=== PATIENT | male | born 1945 | race African-American/Black ===

== ENCOUNTER 2017-04-24 12:32 | Emergency (ER) | payer OTHER, BC ==
[~2017-04-24] VITALS: Ht 188 cm; Wt 136.1 kg
[~2017-04-24 12:32] MED LIST: ASPI81CT89 PO; CARV6.252 PO; DILT60TA94 PO; DOCU-67 PO; GABA300C PO; ISOS30TE PO; LANTUS SUBQ; LOSA25TA14 PO
[2017-04-24 12:36] VITALS: BP 131/88
--- NOTE | 2017-04-24 12:40 | NUR ---
Patient transferred to bed 6 via personal wheelchair. RN evaluating patient at bedside.
[2017-04-24] MEDS ORDERED: NACL 0.9% 1,000 ML IV ONE (12:45)
[2017-04-24] MEDS ORDERED: ASPIRIN 81 MG TAB.CHEW PO ONE (12:45)
--- NOTE | 2017-04-24 12:47 | NUR ---
Dr. Deras evaluating patient at bedside.
[2017-04-24] MEDS ORDERED: ADENOSINE 6 MG/2 ML VIAL IVP ONE ×2 (12:50→13:15)
--- NOTE | 2017-04-24 12:50 | NUR ---
PT PRESENTS TO ER W/C/O CHEST PAIN NON RADITAING SINCE YESTERDAY. 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 ALL MONITORS IN PLACED;ER MD MADE AWARE OF PT STATUS.
[2017-04-24] MEDS ORDERED: DILTIAZEM 25 MG/5 ML VIAL IVP ONE (13:15)
--- NOTE | 2017-04-24 13:23 | NUR ---
PT RESTING ON BED;ALL MONITORS IN PLACED;SAFETY MEASURES INSTITUTED;WILL CONTINUE TO MONITOR PT.
[2017-04-24 13:37] LABS: BASOPHILS # (AUTO) 0.1 K/uL (0.00-0.22); BASOPHILS % (AUTO) 1.1 % (0.0-2.0); EOSINOPHILS # (AUTO) 0.2 K/uL (0-0.4); EOSINOPHILS % (AUTO) 1.3 % (0.0-4.0); HEMATOCRIT 44.5 % (36-52); HEMOGLOBIN 14.2 g/dL (12.0-18.0); LYMPHOCYTES # (AUTO) 1.7 K/uL (2.0-11.5); LYMPHOCYTES % (AUTO) 13.4 % (20.5-51.1); MEAN CORPUSCULAR HEMOGLOBIN 25 pg (27-31); MEAN CORPUSCULAR HGB CONC 32 g/dL (33-37); MEAN CORPUSCULAR VOLUME 78 fL (80-94); MONOCYTES # (AUTO) 0.7 K/uL (0.8-1.0); MONOCYTES % (AUTO) 5.8 % (1.7-9.3); NEUTROPHILS # (AUTO) 10.2 K/uL (1.8-7.7); NEUTROPHILS % (AUTO) 78.4 % (42.2-75.2); PLATELET COUNT (AUTO) 207 K/uL (140-450); RED BLOOD CELL COUNT(AUTO) 5.69 MIL/uL (4.20-6.10); RED CELL DISTRIBUTION WIDTH 14.8 % (11.6-13.7); WHITE BLOOD COUNT (AUTO) 12.9 K/uL (4.8-10.8)
[2017-04-24 13:44] LABS: ANION GAP 15.4 (8-16); ASPARTATE AMINOTRANSFERASE 37 U/L (15-37); CARBON DIOXIDE 22.3 mmol/L (21-32); CHLORIDE 105 mmol/L (98-107); CREATININE 1.8 mg/dL (0.7-1.3); GLUCOSE 351 mg/dL (74-106); POTASSIUM 3.7 mmol/L (3.5-5.1); SODIUM SERUM 139 mmol/L (136-145); TOTAL BILIRUBIN 0.4 mg/dL (0.0-1.0); UREA NITROGEN, BLOOD 25 mg/dL (7-18)
[2017-04-24 13:57] LABS: PROTHROMBIN TIME 10.7 secs (10.8-13.4)
[2017-04-24 14:50] VITALS: BP 127/70
--- NOTE | 2017-04-24 14:50 | NUR ---
Patient discharged with v/s stable. Written and verbal after care instructions given and explained. Patient verbalized understanding. Ambulatory with steady gait. All questions addressed prior to discharge. Advised to follow up with PMD.
== END 2017-04-24 14:50 | disposition home or self-care (01) ==
LOC: MED 12:32
DX: I47.1 Supraventricular tachycardia (principal); R07.89 Other chest pain; R94.31 Abnormal electrocardiogram [ECG] [EKG]; E11.9 Type 2 diabetes mellitus without complications; I10 Essential (primary) hypertension; Z79.82 Long term (current) use of aspirin; Z79.899 Other long term (current) drug therapy; Z79.4 Long term (current) use of insulin
CPT/HCPCS: 36415; 71010; 80053; 83880; 84484; 85025; 85610; 85730; 93005; 96361; 96374; 96375; 99285; J0153; J3490; J7030; Q0092

== ENCOUNTER 2017-04-25 19:14 | Inpatient (IN) | payer OTHER, BC ==
[~2017-04-25] VITALS: Ht 188 cm; Wt 136.5 kg
[2017-04-25 19:53] VITALS: BP 157/101
--- NOTE | 2017-04-25 20:08 | NUR ---
Patient taken from ED lobby to XRAY via personal wheelchair by Integration Management.
[2017-04-25 20:29] LABS: BASOPHILS # (AUTO) 0.1 K/uL (0.00-0.22); EOSINOPHILS # (AUTO) 0.1 K/uL (0-0.4); EOSINOPHILS % (AUTO) 1.1 % (0.0-4.0); HEMATOCRIT 44.6 % (36-52); HEMOGLOBIN 14.4 g/dL (12.0-18.0); LYMPHOCYTES # (AUTO) 1.3 K/uL (2.0-11.5); LYMPHOCYTES % (AUTO) 14.7 % (20.5-51.1); MEAN CORPUSCULAR HEMOGLOBIN 25 pg (27-31); MEAN CORPUSCULAR HGB CONC 32 g/dL (33-37); MEAN CORPUSCULAR VOLUME 77 fL (80-94); MONOCYTES # (AUTO) 0.3 K/uL (0.8-1.0); MONOCYTES % (AUTO) 3.6 % (1.7-9.3); NEUTROPHILS # (AUTO) 6.8 K/uL (1.8-7.7); NEUTROPHILS % (AUTO) 79.6 % (42.2-75.2); PLATELET COUNT (AUTO) 216 K/uL (140-450); RED BLOOD CELL COUNT(AUTO) 5.77 MIL/uL (4.20-6.10); RED CELL DISTRIBUTION WIDTH 14.8 % (11.6-13.7); WHITE BLOOD COUNT (AUTO) 8.6 K/uL (4.8-10.8)
[2017-04-25 20:51] LABS: PROTHROMBIN TIME 10.2 secs (10.8-13.4)
[2017-04-25 20:55] LABS: ANION GAP 11.1 (8-16); CARBON DIOXIDE 26.8 mmol/L (21-32); CHLORIDE 105 mmol/L (98-107); CREATININE 1.6 mg/dL (0.7-1.3); GLUCOSE 300 mg/dL (74-106); POTASSIUM 3.9 mmol/L (3.5-5.1); SODIUM SERUM 139 mmol/L (136-145); UREA NITROGEN, BLOOD 14 mg/dL (7-18)
[2017-04-25 21:01] LABS: ALBUMIN 3.2 g/dL (3.4-5.0); ASPARTATE AMINOTRANSFERASE 14 U/L (15-37); TOTAL BILIRUBIN 0.3 mg/dL (0.0-1.0)
--- NOTE | 2017-04-25 21:41 | NUR ---
Patient transferred to bed 4 via personal wheelchair. Accompanied by family. RN evaluating patient at bedside.
--- NOTE | 2017-04-25 21:43 | NUR ---
Dr. Jiang evaluating patient at bedside.
--- NOTE | 2017-04-25 21:45 | NUR ---
72/M c/o chest pain for the past two days. Pt was seen here yesterday for same symptoms and patient states the pain did not improve. Daughter at bedside. Pt c/o tightness, constant, 5/10 pain. Pt also c/o nausea, denies vomiting. Pt is AOX4, w/c bound, uses an electric w/c to get around. Pt placed on cardiac catheterization technician, pulse oximetry and blood pressure monitoring. Warm blanket provided. All needs addressed at this time.
[2017-04-25] MEDS ORDERED: METOPROLOL 50 MG TAB PO ONE (21:55)
[2017-04-25] MEDS ORDERED: ASPIRIN 81 MG TAB.CHEW PO ONE (21:55)
[2017-04-25] MEDS ORDERED: ZOLPIDEM 5 MG TAB PO PRN (22:05)
[2017-04-25] MEDS ORDERED: LORazepam 1 MG TAB PO PRN (22:05)
[2017-04-25] MEDS ORDERED: DEXTROSE 50% 50 ML SYR IVP PRN (22:05)
[2017-04-25] MEDS ORDERED: ALUMINUM HYD/MAG/SIMETHICONE 30 ML UDC PO PRN (22:05)
[2017-04-25] MEDS ORDERED: ONDANSETRON 4 MG/2 ML VIAL IVP PRN (22:05)
[2017-04-25] MEDS ORDERED: HYDROcodone/APAP 5/325 MG 1 TAB TAB PO PRN (22:05)
[2017-04-25] MEDS ORDERED: NITROGLYCERIN 0.4 MG TAB SL PRN (22:05)
[2017-04-25] MEDS ORDERED: DOCUSATE SODIUM 100 MG GELCAP PO PRN (22:05)
[2017-04-25] MEDS ORDERED: ACETAMINOPHEN 325 MG TAB PO PRN (22:05)
--- NOTE | 2017-04-25 23:27 | NUR ---
Unable to give report at this time. Will follow up in 10 minutes.
--- NOTE | 2017-04-25 23:48 | NUR ---
Patient will be admitted to care of . Admited to TELE. Will go to room 111B. Belongings list completed. Report to
[2017-04-25 23:58] VITALS: BP 153/72
--- NOTE | 2017-04-26 00:10 | NUR ---
RECEIVED PT FROM ER, WAS WHEELED IN VIA GURNEY. WAS ABLE TO AMBULATE TO THE BED WITH AN ASSISTANCE. PT IS AOX4, ABLE TO MAKE NEEDS KNOWN. WITH RESPIRATIONS CLEAR AND UNLABORED. POSITIVE BOWEL SOUNDS ON ALL FOUR QUADRANTS. WITH COMPLAINTS OF CHEST PAIN 4/10, OFFERED MEDICATION, BUT REFUSED. WITH AN IV ON THE RIGHT HAND 20 G, INTACT AND PATENT. SKIN IS INTACT. INITIAL ASSESSMENT FINISHED. ON TELE MONITORING. ORIENTED PT TO THE UNIT, VERBALIZED UNDERSTANDING. WILL CONTINUE TO MONITOR. ALL NEEDS ATTENDED. CALL LIGHT WITHIN REACH. SAFETY CHECKS IN PLACE.
[2017-04-26] MEDS: NACL 0.9% 1,000 ML IV SCH ×4 (00:15→22:02)
--- NOTE | 2017-04-26 02:16 | NUR ---
PT SEEN WATCHING TV. NO S/S OF DISTRESS. NO COMPLAINTS OF PAIN. WILL CONTINUE TO MONITOR FOR ANY CHANGES.
[2017-04-26 04:00] VITALS: BP 145/72
--- NOTE | 2017-04-26 04:00 | NUR ---
VITAL SIGNS STABLE. NO COMPLAINTS OF PAIN. NO S/S OF DISTRESS. WILL CONTINUE TO MONITOR FOR ANY CHANGES.
[2017-04-26 05:00] LABS: BASOPHILS # (AUTO) 0.2 K/uL (0.00-0.22); BASOPHILS % (AUTO) 2.2 % (0.0-2.0); EOSINOPHILS # (AUTO) 0.1 K/uL (0-0.4); EOSINOPHILS % (AUTO) 1.6 % (0.0-4.0); HEMOGLOBIN 13.8 g/dL (12.0-18.0); LYMPHOCYTES # (AUTO) 1.7 K/uL (2.0-11.5); LYMPHOCYTES % (AUTO) 17.9 % (20.5-51.1); MEAN CORPUSCULAR HEMOGLOBIN 25 pg (27-31); MEAN CORPUSCULAR HGB CONC 32 g/dL (33-37); MEAN CORPUSCULAR VOLUME 78 fL (80-94); MONOCYTES # (AUTO) 0.7 K/uL (0.8-1.0); MONOCYTES % (AUTO) 7.1 % (1.7-9.3); NEUTROPHILS # (AUTO) 6.6 K/uL (1.8-7.7); NEUTROPHILS % (AUTO) 71.2 % (42.2-75.2); PLATELET COUNT (AUTO) 211 K/uL (140-450); RED BLOOD CELL COUNT(AUTO) 5.53 MIL/uL (4.20-6.10); RED CELL DISTRIBUTION WIDTH 14.6 % (11.6-13.7); WHITE BLOOD COUNT (AUTO) 9.3 K/uL (4.8-10.8)
[2017-04-26 06:04] LABS: ANION GAP 7.9 (8-16); CARBON DIOXIDE 28.7 mmol/L (21-32); CHLORIDE 106 mmol/L (98-107); CREATININE 1.4 mg/dL (0.7-1.3); GLUCOSE 254 mg/dL (74-106); POTASSIUM 3.6 mmol/L (3.5-5.1); SODIUM SERUM 139 mmol/L (136-145); UREA NITROGEN, BLOOD 14 mg/dL (7-18)
[2017-04-26 06:11] LABS: MAGNESIUM 1.8 mg/dL (1.8-2.4); PHOSPHORUS 2.9 mg/dL (2.5-4.9)
[2017-04-26 06:17] LABS: CHOL/HDL RATIO 3.5 (1-4.5); THYROID STIMULATING HORMONE 1.25 uIU/mL (0.34-3.74)
[2017-04-26] MEDS: INSULIN LISPRO SLIDING SCALE 100 UNITS/ML VIAL SUBQ PRN ×4 (06:28→20:18)
[2017-04-26] MEDS: BLOOD GLUCOSE MONITORING 1 DEV DEV FS SCH ×4 (06:30→20:34)
--- NOTE | 2017-04-26 06:30 | NUR ---
BLOOD SUGAR CHECK OF , GAVE 4 UNITS OF INSULIN
--- NOTE | 2017-04-26 07:10 | NUR ---
ENDORSED TO AM SHIFT NURSE FOR CONTINUITY OF CARE, IN STABLE CONDITION.
--- NOTE | 2017-04-26 07:15 | NUR ---
RECEIVED REPORT FROM WARP SPOOLER NURSE, PT IS RESTING IN BED, A/OX4, AMBULATES WITH ASSIST, IV IS ON THE RT HAND, PATENT, INTACT, FLUSHING WELL, SKIN IS INTACT, NO S/S OF RESPIRATORY DISTRESS OR DISCOMFORT NOTED, DISCUSSED PLAN OF CARE WITH PT, PT VERBALIZED UNDERSTANDING, SAFETY/FALL PRECAUTIONS ARE IN PLACE, CALL LIGHT IS WITHIN REACH, WILL CONTINUE TO MONITOR.
[2017-04-26 08:00] VITALS: BP 157/98
--- NOTE | 2017-04-26 08:46 | NUR ---
PATIENT HAS BEEN SCREENED AND CATEGORIZED MODERATE NUTRITION RISK. PATIENT WILL BE SEEN WITHIN 3-5 DAYS OF ADMISSION. 04/28/17-04/30/[address]
[2017-04-26] MEDS ORDERED: INSULIN GLARGINE SUBQ SCH (09:00)
[2017-04-26] MEDS ORDERED: INSULIN DETEMIR 100 UNITS/ML 10 ML VIAL SUBQ SCH (09:20)
[2017-04-26] MEDS: GABAPENTIN 300 MG CAP PO SCH ×3 (09:55→17:12)
[2017-04-26] MEDS: CARVEDILOL 6.25 MG TAB PO SCH ×2 (09:55→20:06)
[2017-04-26] MEDS: LOSARTAN 25 MG TAB PO SCH (09:55)
[2017-04-26] MEDS: DILTIAZEM 60 MG TAB PO SCH ×2 (09:56→20:06)
[2017-04-26] MEDS: ASPIRIN 81 MG TAB.CHEW PO SCH (09:56)
[2017-04-26] MEDS: ISOSORBIDE MONONITRATE 30 MG TABER PO SCH (09:56)
--- NOTE | 2017-04-26 09:56 | NUR ---
DUE MEDICATIONS GIVEN, PT TOLERATED WELL, CALL LIGHT WITHIN REACH, WILL CONTINUE TO MONITOR.
--- NOTE | 2017-04-26 11:30 | NUR ---
WEIGHT COUNT OPERATOR IS AT PATIENT'S BEDSIDE AT THIS TIME.
[2017-04-26 12:00] VITALS: BP 156/99
[2017-04-26 13:35] LABS: CREATINE KINASE MB 2.1 ng/mL (0-3.6)
--- NOTE | 2017-04-26 13:35 | NUR ---
PATIENT IS RESTING IN BED, WATCHING TV, NO S/S OF RESPIRATORY DISTRESS OR DISCOMFORT NOTED, CALL LIGHT IS WITHIN REACH.
--- NOTE | 2017-04-26 15:40 | NUR ---
PATIENT IS SLEEPING IN BED, CALL LIGHT IS WITHIN REACH.
[2017-04-26 16:00] VITALS: BP 156/98
--- NOTE | 2017-04-26 17:40 | NUR ---
PATIENT IS RESTING IN BED WATCHING TV, CALL LIGHT IS WITHIN REACH.
--- NOTE | 2017-04-26 19:15 | NUR ---
PT ENDORSED TO GLOBAL PROGRAM MANAGER NURSE FOR CONTINUITY OF CARE, PT STABLE AT THIS TIME.
--- NOTE | 2017-04-26 19:20 | NUR ---
RECEIVED PT ON BED, AAOX4, COMPLAINING OF CHEST PAIN AND HEADACHE 5/10, VITAL SIGNS STABLE, NO SOB NOTED, WILL MEDICATE PRN, IVF INFUSING WELL, PLAN OF CARE DISCUSSED, SAFETY MEASURES IN PLACE, CALL LIGHT WITHIN REACH.
[2017-04-26] MEDS: MORPHINE SULFATE 2 MG/ML SYR IVP PRN (19:27)
[2017-04-26 20:00] VITALS: BP 132/88
[2017-04-26] MEDS: INSULIN DETEMIR 100 UNITS/ML 10 ML VIAL SUBQ SCH (20:16)
--- NOTE | 2017-04-26 20:30 | NUR ---
BLOOD SUGAR CHECKED WITH 262 RESULT, COVERAGE GIVEN, SNACK PROVIDED, DUE MEDS GIVEN WITH EDUCATION PROVIDED, ALL NEEDS ATTENDED.
--- NOTE | 2017-04-26 22:11 | NUR ---
SEEN PT TALKING ON THE PHONE, NO DISTRESS NOTED, NEW IV BAG OF NS @ 100ML/H STARTED, MONITORED CLOSELY.
[2017-04-26 23:41] LABS: APPEARANCE,URINE CLEAR (CLEAR); BILIRUBIN,URINE NEGATIVE (NEGATIVE); BLOOD, URINE TRACE-L (NEGATIVE); COLOR,URINE YELLOW (YELLOW); LEUKOCYTE ESTERASE ,URINE NEGATIVE (NEGATIVE); NITRITE, URINE NEGATIVE (NEGATIVE); UGLUCOSE 2+ (NEGATIVE)
[2017-04-27] VITALS: BP 135/96
[2017-04-27 00:06] LABS: RBC,URINE 0-5 (RARE) /HPF (0-5); WBC,URINE 0-5 (RARE) /HPF (0-5)
--- NOTE | 2017-04-27 00:40 | NUR ---
PT HAD SHORT SVT OF 13 BEATS, PT SLEEPING, NO SIGNS OF DISTRESS, VITAL SIGNS STABLE, DENIES ANY CHEST PAIN, MONITORED CLOSELY
[2017-04-27] MEDS: MORPHINE SULFATE 2 MG/ML SYR IVP PRN (03:36)
--- NOTE | 2017-04-27 03:36 | NUR ---
PT AWAKE COMPLAINING OF CHEST PRESSURE AND HEADACHE, VITAL SIGN STABLE, SR ON TELE, MEDICATED PRN WITH MORPHINE IVP, MONITORED CLOSELY.
[2017-04-27 04:00] VITALS: BP 130/89
[2017-04-27] MEDS: NACL 0.9% 1,000 ML IV SCH (04:05)
--- NOTE | 2017-04-27 06:00 | NUR ---
BLOOD SUGAR CHECKED WITH 172 RESULT, COVERAGE GIVEN, DENIES ANY PAIN AT THIS TIME, MONITORED CLOSELY.
[2017-04-27] MEDS: INSULIN LISPRO SLIDING SCALE 100 UNITS/ML VIAL SUBQ PRN (06:10)
[2017-04-27 06:16] LABS: BASOPHILS # (AUTO) 0.1 K/uL (0.00-0.22); EOSINOPHILS # (AUTO) 0.2 K/uL (0-0.4); EOSINOPHILS % (AUTO) 1.8 % (0.0-4.0); HEMATOCRIT 43.1 % (36-52); HEMOGLOBIN 13.9 g/dL (12.0-18.0); LYMPHOCYTES # (AUTO) 1.3 K/uL (2.0-11.5); LYMPHOCYTES % (AUTO) 14.6 % (20.5-51.1); MEAN CORPUSCULAR HEMOGLOBIN 25 pg (27-31); MEAN CORPUSCULAR HGB CONC 32 g/dL (33-37); MEAN CORPUSCULAR VOLUME 77 fL (80-94); MONOCYTES # (AUTO) 0.5 K/uL (0.8-1.0); NEUTROPHILS # (AUTO) 6.9 K/uL (1.8-7.7); NEUTROPHILS % (AUTO) 76.6 % (42.2-75.2); PLATELET COUNT (AUTO) 209 K/uL (140-450); RED BLOOD CELL COUNT(AUTO) 5.59 MIL/uL (4.20-6.10); RED CELL DISTRIBUTION WIDTH 14.2 % (11.6-13.7)
--- NOTE | 2017-04-27 06:30 | NUR ---
DR Bari SMITH HERE, WITH ORDER FOR DISCHARGE TODAY, PATIENT AWARE, HE WILL ASK HER DAUGHTER TO PICK HIM UP, HE WILL CALL HER AT AROUND 0900 BECAUSE IT'S STILL TOO EARLY, WILL ENDORSE TO NEXT SHIFT.
[2017-04-27 06:32] VITALS: BP 130/89
[2017-04-27 06:39] LABS: CARBON DIOXIDE 24.6 mmol/L (21-32); CHLORIDE 106 mmol/L (98-107); CREATININE 1.2 mg/dL (0.7-1.3); GLUCOSE 174 mg/dL (74-106); MAGNESIUM 1.6 mg/dL (1.8-2.4); POTASSIUM 3.6 mmol/L (3.5-5.1); SODIUM SERUM 139 mmol/L (136-145); UREA NITROGEN, BLOOD 11 mg/dL (7-18)
[2017-04-27] MEDS: BLOOD GLUCOSE MONITORING 1 DEV DEV FS SCH (06:42)
--- NOTE | 2017-04-27 07:32 | NUR ---
PT AWAKE, REPORT GIVEN TO GLORIA MACK FOR CONTINUITY OF CARE.
[2017-04-27 08:00] VITALS: BP 174/107
[2017-04-27] MEDS: CARVEDILOL 6.25 MG TAB PO SCH (08:27)
[2017-04-27] MEDS: ASPIRIN 81 MG TAB.CHEW PO SCH (08:28)
[2017-04-27] MEDS: LOSARTAN 25 MG TAB PO SCH (08:28)
[2017-04-27] MEDS: DILTIAZEM 60 MG TAB PO SCH (08:28)
[2017-04-27] MEDS: GABAPENTIN 300 MG CAP PO SCH (08:28)
[2017-04-27] MEDS: ISOSORBIDE MONONITRATE 30 MG TABER PO SCH (08:29)
--- NOTE | 2017-04-27 08:30 | NUR ---
PATIENT ATE BREAKFAST, TOLERATED ABOUT 90 PERCENT.
[2017-04-27] MEDS: INSULIN DETEMIR 100 UNITS/ML 10 ML VIAL SUBQ SCH (08:42)
[2017-04-27 09:05] VITALS: BP 146/95
--- NOTE | 2017-04-27 10:10 | NUR ---
GAVE PATIENT DISCHARGE INSTRUCTIONS, FOLLOW UP WITH DR. SMITH IN ONE WEEK, PHONE NUMBER GIVEN. VERBALIZED UNDERSTANDING. VITAL SIGNS ARE STABLE AT THIS TIME. PATIENT IN HIS OWN AUTOMATIC WHEELCHAIR. DISCONTINUED IV FROM SITE, APPLIED DRESSING, CLEAN, DRY AND INTACT. ACCOMPANIED PATIENT AND DAUGHTER OUT TO [place].
== END 2017-04-27 10:10 | disposition home or self-care (01) | DRG 303 ==
LOC: MED 19:14 → MTU 22:13
PROVIDERS: ADMIT Preventive Medicine Preventive Medicine/Occupational Environmental Medicine; ATTEND Preventive Medicine Preventive Medicine/Occupational Environmental Medicine
DX: I25.10 Atherosclerotic heart disease of native coronary artery without angina pectoris (principal); N17.9 Acute kidney failure, unspecified; E11.22 Type 2 diabetes mellitus with diabetic chronic kidney disease; E11.40 Type 2 diabetes mellitus with diabetic neuropathy, unspecified; I12.9 Hypertensive chronic kidney disease with stage 1 through stage 4 chronic kidney disease, or unspecified chronic kidney disease; E11.65 Type 2 diabetes mellitus with hyperglycemia; E78.5 Hyperlipidemia, unspecified; N18.9 Chronic kidney disease, unspecified; Z95.5 Presence of coronary angioplasty implant and graft; Z79.899 Other long term (current) drug therapy; Z79.4 Long term (current) use of insulin
CPT/HCPCS: 36415; 71010; 76770; 80048; 80053; 81001; 82550; 82553; 82948; 83036; 83735; 83880; 84100; 84443; 84484; 85025; 85610; 85730; 87081; 93005; 96361; 96374; 96375; 99285; J0153; J1644; J1815; J2270; J3490; J7030; Q0092

== ENCOUNTER 2018-01-19 15:10 | Inpatient (IN) | payer OTHER, BC ==
[~2018-01-19] VITALS: Ht 188 cm; Wt 128.8 kg
[~2018-01-19 15:10] MED LIST changes: +DOCU-299 PO; -DOCU-67 PO
--- NOTE | 2018-01-19 15:15 | NUR ---
Patient ambulated to bed 5 at this time.
[2018-01-19 15:20] VITALS: BP 171/99
--- NOTE | 2018-01-19 15:44 | NUR ---
PATIENT PRESENTS TO ED WITH THE CHIEF C/O CHEST PAIN. PT STATES PAIN STARTED EARLY THIS MORNING. DENIES N/V/D; SKIN IS PINK/WARM/DRY; AAOX4 WITH EVEN AND STEADY GAIT. HR EVEN AND REGULAR; PT DENIES ANY FEVER, CP, SOB, OR COUGH AT THIS TIME. PATIENT STATES PAIN OF 8/10 AT THIS TIME. VSS WNL. PATIENT POSITIONED FOR COMFORT; HOB ELEVATED; BEDRAILS UP X2; BED DOWN. ER MD MADE AWARE OF PT STATUS.
[2018-01-19 16:00] LABS: BASOPHILS # (AUTO) 0.1 K/uL (0.00-0.22); BASOPHILS % (AUTO) 0.8 % (0.0-2.0); EOSINOPHILS # (AUTO) 0.1 K/uL (0-0.4); EOSINOPHILS % (AUTO) 1.2 % (0.0-4.0); HEMATOCRIT 41.4 % (36-52); HEMOGLOBIN 13.3 g/dL (12.0-18.0); LYMPHOCYTES % (AUTO) 15.5 % (20.5-51.1); MEAN CORPUSCULAR HEMOGLOBIN 25 pg (27-31); MEAN CORPUSCULAR HGB CONC 32 g/dL (33-37); MEAN CORPUSCULAR VOLUME 78.1 fL (80-94); MONOCYTES # (AUTO) 0.5 K/uL (0.8-1.0); MONOCYTES % (AUTO) 6.8 % (1.7-9.3); NEUTROPHILS # (AUTO) 5.1 K/uL (1.8-7.7); NEUTROPHILS % (AUTO) 75.7 % (42.2-75.2); PLATELET COUNT (AUTO) 191 K/uL (140-450); RED CELL DISTRIBUTION WIDTH 14.4 % (11.6-13.7); WHITE BLOOD COUNT (AUTO) 6.7 K/uL (4.8-10.8)
[2018-01-19 16:22] LABS: ANION GAP 11.7 (8-16); CARBON DIOXIDE 25.7 mmol/L (21-32); CHLORIDE 102 mmol/L (98-107); CREATININE 1.4 mg/dL (0.7-1.3); GLUCOSE 338 mg/dL (74-106); POTASSIUM 3.4 mmol/L (3.5-5.1); SODIUM SERUM 136 mmol/L (136-145); UREA NITROGEN, BLOOD 21 mg/dL (7-18)
[2018-01-19 16:27] LABS: ASPARTATE AMINOTRANSFERASE 12 U/L (15-37); TOTAL BILIRUBIN 0.2 mg/dL (0.0-1.0)
[2018-01-19] MEDS ORDERED: ASPIRIN 81 MG TAB.CHEW PO ONE (16:30)
[2018-01-19] MEDS ORDERED: NITROGLYCERIN 0.4 MG TAB SL ONE (16:30)
--- NOTE | 2018-01-19 16:31 | NUR ---
BS 288. DR. TRIPLETT MADE AWARE.
[2018-01-19] MEDS ORDERED: POTASSIUM CHLORIDE 10 MEQ TABER PO ONE (16:35)
--- NOTE | 2018-01-19 16:46 | NUR ---
PT RESTING IN BED. IN ACUTE RESPIRATORY DISTRESS NOTED. NO CHANGE IN LOC. WILL CONTINUE TO MONITOR.
--- NOTE | 2018-01-19 17:16 | NUR ---
PT EVALUATED BY DR. TRIPLETT.
[2018-01-19 17:17] LABS: BARBITURATE, URINE NEG. ng/ml (NEG <=200); BENZODIAZEPINE, URINE NEG. ng/mL (NEG <=200); CANNABINOID, URINE NEG. ng/mL (NEG <=50); COCAINE, URINE NEG. ng/mL (NEG <=300); OPIATE, URINE NEG. ng/mL (NEG <=2000); PHENCYCLIDINE SCREEN,URINE NEG. ng/mL (NEG <=25)
[2018-01-19] MEDS ORDERED: MORPHINE SULFATE 4 MG/ML SYR IVP ONE (17:20)
[2018-01-19] MEDS ORDERED: ACETAMINOPHEN 325 MG TAB PO PRN (17:45)
[2018-01-19] MEDS ORDERED: ONDANSETRON 4 MG/2 ML VIAL IVP PRN (17:45)
[2018-01-19] MEDS ORDERED: NITROGLYCERIN 0.4 MG TAB SL PRN ×2 (17:50→22:05)
[2018-01-19 18:13] LABS: APPEARANCE,URINE CLEAR (CLEAR); BILIRUBIN,URINE NEGATIVE (NEGATIVE); BLOOD, URINE TRACE-I (NEGATIVE); COLOR,URINE YELLOW (YELLOW); LEUKOCYTE ESTERASE ,URINE NEGATIVE (NEGATIVE); NITRITE, URINE NEGATIVE (NEGATIVE); PH,URINE 5.5 (5.0-9.0); UGLUCOSE 3+ (NEGATIVE)
[2018-01-19 18:39] LABS: RBC,URINE 3-10 (FEW) /HPF (0-5); WBC,URINE 0-5 (RARE) /HPF (0-5)
[2018-01-19 18:40] LABS: CHOL/HDL RATIO 2.8 (1-4.5); FREE T4 (FREE THYROXINE) 0.81 ng/dL (0.76-1.46); MAGNESIUM 1.9 mg/dL (1.8-2.4); PHOSPHORUS 3.2 mg/dL (2.5-4.9); THYROID STIMULATING HORMONE 0.94 uIU/mL (0.34-3.74)
[2018-01-19] MEDS: NACL 0.9% 1,000 ML IV SCH (18:56)
--- NOTE | 2018-01-19 19:15 | NUR ---
RECEIVED REPORT FROM AM NURSE. PT RESTING COMFORTABLY IN BED, PT REPORTS TOLERABLE CP AT THIS TIME. RR EVEN AND UNLABORED, ALL NEEDS MET AT THIS TIME.
--- NOTE | 2018-01-19 19:20 | NUR ---
Patient will be admitted to care of DR SNELL. Admited to TELE. Will go to room 107B. Belongings list completed. Report to GLORIA GOODWIN AT BEDSIDE.
--- NOTE | 2018-01-19 19:25 | NUR ---
PT ARRIVED AT UNIT VIA GURNEY, PT AMBULATED TO BED, TOLERATED WELL, BEDSIDE REPORT RECEIVED FROM ER NURSE JASON RN, PT STABLE NO DISTRESS NOTED, IV TO LFA 20G SL, PATENT INTACT, PT ON ROOM AIR NO SOB, STATED HAVING TOLERABLE PAIN ON THE CHEST AREA AND HEADACHE OF 4/10, PT BP WAS HIGH 175/104, WILL MEDICATE AND NOTIFY SKIN INTACT, BELONGING WITH PT, INITIAL ASSESSMENT DONE, ALL SAFETY PRECAUTION MET, MRSA SWAB TAKEN, ORIENT PT TO ROOM, PHONE AND CALL LIGHT, CALL LIGHT WITHIN REACH, WILL CONTINUE TO MONITOR.
--- NOTE | 2018-01-19 19:53 | NUR ---
NITRO SL ORDERED FOR SBP OVER 160, GIVEN, PT TOLERATED WELL, WILL RECHECK BP IN 1 HR, PT STABLE, NO DISTRESS NOTED, CALL LIGHT WITHIN REACH.
[2018-01-19 20:00] VITALS: BP 175/104
[2018-01-19] MEDS ORDERED: FINA5TAB1 PO (20:41)
[2018-01-19] MEDS ORDERED: LISI5TAB18 PO (20:41)
[2018-01-19] MEDS ORDERED: LYR50 PO (20:41)
[2018-01-19] MEDS ORDERED: METO-575 PO (20:41)
[2018-01-19] MEDS ORDERED: RIVA20TA PO (20:41)
[2018-01-19] MEDS ORDERED: LUBI24SG4 PO (20:41)
[2018-01-19] MEDS ORDERED: AMIO200T2 PO (20:41)
[2018-01-19] MEDS ORDERED: ATOR20TA PO (20:41)
[2018-01-19] MEDS ORDERED: LISINOPRIL 5 MG TAB PO SCH ×2 (20:45→21:00)
[2018-01-19] MEDS ORDERED: AMIODARONE 200 MG TAB PO SCH ×2 (20:45→21:00)
[2018-01-19] MEDS ORDERED: METOPROLOL SUCCINATE 50 MG TABER PO SCH ×2 (20:45→21:00)
[2018-01-19 20:50] VITALS: BP 190/117
--- NOTE | 2018-01-19 20:50 | NUR ---
RECHECKED PT BP, PT BP NOW 190/117, DR. MENDOZA NOTIFIED, STATED HE WILL PUT IN ORDERS. WILL CONTINUE WITH ORDERS. Addendum: 01/20/18 at 0013 by Nubia Christian RN PT STATED HAVING SLIGHT CHEST PAIN AND HEADACHE BUT STILL TOLERABLE, DR. MENDOZA NOTIFIED.
[2018-01-19] MEDS: DOCUSATE SODIUM 100 MG GELCAP PO SCH (21:07)
[2018-01-19] MEDS: INSULIN LANTUS 100 UNITS/ML 10 ML VIAL SUBQ SCH (21:14)
--- NOTE | 2018-01-19 21:14 | NUR ---
MEDICATION ORDERED ADMINISTERED, PT TOLERATED WELL, NO DISTRESS NOTED, CALL LIGHT WITHIN REACH, WILL CONTINUE TO MONITOR.
[2018-01-19] MEDS ORDERED: DEXTROSE 50% 50 ML SYR IVP PRN (22:00)
[2018-01-19 23:10] VITALS: BP 180/104
--- NOTE | 2018-01-19 23:10 | NUR ---
RECHECKED PT BP 180/104 HR 81, DR. MENDOZA NOTIFIED, STATED UNDERSTANDING AND WILL PUT IN ORDERS. WILL CONTINUE WITH ORDERS, PT STATED HAVING HEADACHE AND A SLIGHT CHEST DISCOMFORT. WILL MEDICATE.
[2018-01-19 23:23] VITALS: BP 175/102
[2018-01-19] MEDS ORDERED: hydrALAZINE 20 MG/ML VIAL IVP SCH (23:30)
[2018-01-19] MEDS: HYDROcodone/APAP 7.5/325 MG 1 TAB PO PRN (23:31)
--- NOTE | 2018-01-19 23:31 | NUR ---
HYDRALAZINE AND NORCO ORDERED GIVEN, PT TOLERATED WELL, NO DISTRESS NOTED, WILL RECHECK PT BP IN ONE HOUR. CALL LIGHT WITHIN REACH, WILL CONTINUE TO MONITOR.
[2018-01-20] VITALS (7 sets, daily range): BP systolic 113–171; BP diastolic 72–103
--- NOTE | 2018-01-20 00:30 | NUR ---
RECHECKED PT BP PT BP 171/96 HR 79 ON THE R ARM AND 131/77 HR 77 ON THE L ARM, BP WAS CHECKED 3 TIMES, NOTIFIED DR. KELLY DR STATED UNDERSTANDING AND TO JUST RECHECKED PT VITALS AT 0400.
--- NOTE | 2018-01-20 02:20 | NUR ---
CHECKED ON PT, PT STATED FEELING PAIN, 02/25, NOTIFIED DR. STEWART REGARDING PT PAIN, STATED UNDERSTANDING AND TO CHECK PT BP, AND HE WILL ORDER MORPHINE. WILL CONTINUE WITH ORDERS.
[2018-01-20] MEDS: MORPHINE SULFATE 2 MG/ML SYR IVP PRN (02:39)
--- NOTE | 2018-01-20 02:39 | NUR ---
MORPHINE ADMINISTERED PER DR ORDER, PT TOLERATED WELL, NO DISTRESS NOTED, CALL LIGHT WITHIN REACH, WILL CONTINUE TO MONITOR.
--- NOTE | 2018-01-20 04:20 | NUR ---
CHECKED ON PT, PT SLEEPING, NO DISTRESS NOTED, V/S TAKEN, WNL, CALL LIGHT WITHIN REACH, WILL CONTINUE TO MONITOR.
[2018-01-20] MEDS: BLOOD GLUCOSE MONITORING 1 DEV DEV FS SCH ×4 (06:19→21:00)
[2018-01-20] MEDS: INSULIN LISPRO SLIDING SCALE 100 UNITS/ML VIAL SUBQ PRN ×4 (06:19→21:05)
[2018-01-20 07:13] LABS: BASOPHILS # (AUTO) 0.1 K/uL (0.00-0.22); BASOPHILS % (AUTO) 0.6 % (0.0-2.0); EOSINOPHILS # (AUTO) 0.1 K/uL (0-0.4); EOSINOPHILS % (AUTO) 1.4 % (0.0-4.0); HEMATOCRIT 40.8 % (36-52); HEMOGLOBIN 13.4 g/dL (12.0-18.0); LYMPHOCYTES # (AUTO) 1.6 K/uL (2.0-11.5); LYMPHOCYTES % (AUTO) 20.2 % (20.5-51.1); MEAN CORPUSCULAR HEMOGLOBIN 26 pg (27-31); MEAN CORPUSCULAR HGB CONC 33 g/dL (33-37); MEAN CORPUSCULAR VOLUME 78.5 fL (80-94); MONOCYTES # (AUTO) 0.5 K/uL (0.8-1.0); MONOCYTES % (AUTO) 6.5 % (1.7-9.3); NEUTROPHILS # (AUTO) 5.8 K/uL (1.8-7.7); NEUTROPHILS % (AUTO) 71.3 % (42.2-75.2); PLATELET COUNT (AUTO) 190 K/uL (140-450); RED CELL DISTRIBUTION WIDTH 14.3 % (11.6-13.7); WHITE BLOOD COUNT (AUTO) 8.1 K/uL (4.8-10.8)
--- NOTE | 2018-01-20 07:30 | NUR ---
ENDORSED PT TO DAY SHIFT NURSE, PT IN STABLE CONDITION, NO DISTRESS NOTED, CALL LIGHT WITHIN REACH.
[2018-01-20 07:55] LABS: ANION GAP 11.5 (8-16); CARBON DIOXIDE 24.1 mmol/L (21-32); CHLORIDE 106 mmol/L (98-107); CREATININE 1.2 mg/dL (0.7-1.3); GLUCOSE 168 mg/dL (74-106); MAGNESIUM 1.9 mg/dL (1.8-2.4); PHOSPHORUS 3.2 mg/dL (2.5-4.9); POTASSIUM 3.6 mmol/L (3.5-5.1); SODIUM SERUM 138 mmol/L (136-145); UREA NITROGEN, BLOOD 15 mg/dL (7-18)
--- NOTE | 2018-01-20 08:00 | NUR ---
ASSUMED CARE OF PATIENT PATIENT AWAKE AND LYING QUIETLY IN BED, NO C/O PAIN VOICED AT THIS TIME
[2018-01-20] MEDS ORDERED: LISINOPRIL 5 MG TAB PO SCH (09:00)
[2018-01-20] MEDS: INSULIN LANTUS 100 UNITS/ML 10 ML VIAL SUBQ SCH ×2 (09:43→21:05)
[2018-01-20] MEDS: PREGABALIN 50 MG CAP PO SCH (09:48)
[2018-01-20] MEDS: RIVAROXABAN 10 MG TAB PO SCH (09:48)
[2018-01-20] MEDS: METOPROLOL SUCCINATE 50 MG TABER PO SCH (09:49)
[2018-01-20] MEDS: AMIODARONE 200 MG TAB PO SCH (09:50)
[2018-01-20] MEDS: DOCUSATE SODIUM 100 MG GELCAP PO SCH ×2 (09:50→21:01)
[2018-01-20] MEDS: ATORVASTATIN 20 MG TAB PO SCH (09:51)
[2018-01-20] MEDS: ASPIRIN 81 MG TAB.CHEW PO SCH (09:51)
[2018-01-20] MEDS: FINASTERIDE 5 MG TAB PO SCH (09:52)
[2018-01-20] MEDS: PANTOPRAZOLE 40 MG INJ VIAL IVP SCH (09:52)
--- NOTE | 2018-01-20 10:26 | NUR ---
PATIENT HAS BEEN SCREENED AND CATEGORIZED MODERATE NUTRITION RISK. PATIENT WILL BE SEEN WITHIN 3-5 DAYS OF ADMISSION. 01/22/18 01/24/[address]
--- NOTE | 2018-01-20 12:15 | NUR ---
PATIENT SITTING UP IN BED. BLOOD SUGAR RECORDED AT 250 WILL COVER WITH INSULIN PER ORDER. BLOOD PRESSURE REMAINS ELEVATED AT 163/93
[2018-01-20] MEDS ORDERED: POTASSIUM CHLORIDE 10 MEQ TABER PO SCH (14:53)
--- NOTE | 2018-01-20 16:26 | NUR ---
Language Interpreter Note: I faxed inquiry to [facility], phone number .
--- NOTE | 2018-01-20 17:00 | NUR ---
Sales Promoter Note: Per [facility] (Admissions Dept) , one of their nurses will review inquiry and will come evaluate patient either today or tomorrow.
--- NOTE | 2018-01-20 17:00 | NUR ---
PATIENT C/O HEADACHE AND MEDICATRED WITH NORCO PER ORDER.. NO OTHER COMPLAINT AT THIS TIME
[2018-01-20] MEDS: NACL 0.9% 1,000 ML IV SCH (17:06)
--- NOTE | 2018-01-20 17:07 | NUR ---
Sheet Rock Applicator Note: Per Leatha from [facility] (Admissions Dept) , patient was discharged from their facility on December 01, 2017 and therefore they can't accept him. Leatha stated 6 months have to pass from the day patient is discharged from [facility] in order for [facility] to re-eval again or have different diagnosis, I relayed this information to .
[2018-01-20] MEDS: HYDROcodone/APAP 7.5/325 MG 1 TAB PO PRN (17:17)
--- NOTE | 2018-01-20 19:30 | NUR ---
REPORTED OFF TO BATSHEVA SABA RN
--- NOTE | 2018-01-20 19:31 | NUR ---
RECEIVED REPORT FROM DAY SHIFT NURSE FELICIANO-RN. AOX4, IV TO LFA 20G SL, PATENT INTACT, PT ON ROOM AIR NO SOB. SKIN INTACT. NO S/S OF RESPIRATORY DISTRESS OR DISCOMFORT NOTED. DISCUSSED PLAN OF CARE AND PT VERBALIZED UNDERSTANDING. WHITE BOARD UPDATED. BED IN LOWEST POSITION, BED BREAKS ON, SIDE RAILS UP. CALL LIGHT AND BED SIDE TABLE WITHIN REACH. WILL CONTINUE TO MONITOR.
--- NOTE | 2018-01-20 21:05 | NUR ---
VITAL SIGNS TAKEN. SCHEDULED MEDICATION GIVEN AND TOLERATED WELL. WILL CONTINUE TO MONITOR.
--- NOTE | 2018-01-20 22:00 | NUR ---
PT SLEEPING AT THIS TIME. WILL CONTINUE TO MONITOR.
[2018-01-21] VITALS: BP_SYST 160; BP_SYST 162; BP_DIAS 95; BP_DIAS 96
[2018-01-21] MEDS: MORPHINE SULFATE 2 MG/ML SYR IVP PRN (00:23)
--- NOTE | 2018-01-21 00:30 | NUR ---
VITAL SIGNS TAKEN AND TOLERATED WELL. PT C/O HEADACHE AND BACK PAIN. MEDICATED. WILL CONTINUE TO MONITOR.
--- NOTE | 2018-01-21 01:50 | NUR ---
PT CONTINUES TO SLEEP. WILL CONTINUE TO MONITOR.
[2018-01-21 04:00] VITALS: BP 148/92
--- NOTE | 2018-01-21 04:00 | NUR ---
VITAL SIGNS TAKEN AND TOLERATED WELL. WILL CONTINUE TO MONITOR.
--- NOTE | 2018-01-21 06:00 | NUR ---
PT AWAKE RESTING IN BED. NO S/S OF RESPIRATORY DISTRESS OR DISCOMFORT. WILL CONTINUE TO MONITOR.
[2018-01-21] MEDS: BLOOD GLUCOSE MONITORING 1 DEV DEV FS SCH ×2 (06:44→11:30)
--- NOTE | 2018-01-21 07:30 | NUR ---
ENDORSED PT CARE TO DAY SHIFT NURSE SOFIA-RN FOR CONTINUITY OF CARE.
--- NOTE | 2018-01-21 08:00 | NUR ---
RECEIVED REPORT FROM BRENNA CASTRO FOR CONTINUITY OF CARE. PATIENT AWAKE A/OX4 NO S/S OF RESP DISTRESS NOTED ABLE TO MAKE NEEDS KNOWN. DENIES ANY PAIN . IV LINE LT ARM G 20 INTACT AND PATENT. IVF INFUSING WELL . PLAN OF CARE DISCUSSED WITH THE PATIENT VITALS STABLE WILL CONTINUE TO MONITOR.
[2018-01-21 08:01] LABS: BASOPHILS % (AUTO) 0.3 % (0.0-2.0); EOSINOPHILS # (AUTO) 0.2 K/uL (0-0.4); EOSINOPHILS % (AUTO) 2.1 % (0.0-4.0); HEMATOCRIT 41.6 % (36-52); HEMOGLOBIN 13.3 g/dL (12.0-18.0); LYMPHOCYTES # (AUTO) 1.7 K/uL (2.0-11.5); LYMPHOCYTES % (AUTO) 18.6 % (20.5-51.1); MEAN CORPUSCULAR HEMOGLOBIN 25 pg (27-31); MEAN CORPUSCULAR HGB CONC 32 g/dL (33-37); MEAN CORPUSCULAR VOLUME 78.7 fL (80-94); MONOCYTES # (AUTO) 0.6 K/uL (0.8-1.0); MONOCYTES % (AUTO) 6.2 % (1.7-9.3); NEUTROPHILS # (AUTO) 6.8 K/uL (1.8-7.7); NEUTROPHILS % (AUTO) 72.8 % (42.2-75.2); PLATELET COUNT (AUTO) 197 K/uL (140-450); RED BLOOD CELL COUNT(AUTO) 5.28 MIL/uL (4.20-6.10); RED CELL DISTRIBUTION WIDTH 14.4 % (11.6-13.7); WHITE BLOOD COUNT (AUTO) 9.3 K/uL (4.8-10.8)
[2018-01-21 08:11] LABS: ANION GAP 9.8 (8-16); CARBON DIOXIDE 27.8 mmol/L (21-32); CHLORIDE 104 mmol/L (98-107); CREATININE 1.4 mg/dL (0.7-1.3); GLUCOSE 95 mg/dL (74-106); POTASSIUM 3.6 mmol/L (3.5-5.1); SODIUM SERUM 138 mmol/L (136-145); UREA NITROGEN, BLOOD 18 mg/dL (7-18)
[2018-01-21 08:42] VITALS: BP 158/96
[2018-01-21] MEDS ORDERED: LISINOPRIL 20 MG TAB PO SCH (09:00)
[2018-01-21] MEDS: NACL 0.9% 1,000 ML IV SCH (09:45)
[2018-01-21] MEDS: METOPROLOL SUCCINATE 50 MG TABER PO SCH (09:54)
[2018-01-21] MEDS: DOCUSATE SODIUM 100 MG GELCAP PO SCH (09:54)
[2018-01-21] MEDS: ASPIRIN 81 MG TAB.CHEW PO SCH (09:54)
[2018-01-21] MEDS: PANTOPRAZOLE 40 MG INJ VIAL IVP SCH (09:54)
[2018-01-21] MEDS: AMIODARONE 200 MG TAB PO SCH (09:55)
[2018-01-21] MEDS: FINASTERIDE 5 MG TAB PO SCH (09:55)
[2018-01-21] MEDS: ATORVASTATIN 20 MG TAB PO SCH (09:55)
[2018-01-21] MEDS: RIVAROXABAN 10 MG TAB PO SCH (10:00)
[2018-01-21] MEDS: PREGABALIN 50 MG CAP PO SCH (10:00)
[2018-01-21] MEDS: INSULIN LANTUS 100 UNITS/ML 10 ML VIAL SUBQ SCH (10:01)
[2018-01-21] MEDS ORDERED: amLODIPine 5 MG TAB PO SCH (10:44)
[2018-01-21] MEDS ORDERED: NACL 0.9% 500 ML IV ONE (11:10)
[2018-01-21] MEDS ORDERED: LISI-420 PO (11:33)
[2018-01-21] MEDS ORDERED: AMLO5TAB4 PO (11:33)
[2018-01-21] MEDS ORDERED: ASPI81CT95 PO (11:35)
[2018-01-21 12:00] VITALS: BP 170/98
[2018-01-21] MEDS: INSULIN LISPRO SLIDING SCALE 100 UNITS/ML VIAL SUBQ PRN (12:56)
--- NOTE | 2018-01-21 13:28 | NUR ---
Gps Field Data Collector Note: I met with patient at bedside. I explained to him reason why [facility] was not able to accept him. He verbalized understanding. He stated he is in agreement with MD's recommendation for home health services for physical therapy and does not have a home health company preference. He requested for us to coordinate home health agency with any home health company. I faxed inquiry to [facility] , fax . Patient's home address [address] [place] [id number], phone number .
[2018-01-21 13:41] VITALS: BP 158/95
--- NOTE | 2018-01-21 13:49 | NUR ---
Health Type Technician Note: Per Veronica from [facility] , fax , they will send a nurse to patient's home within 48 hours, patient's nurse Kary woods.
--- NOTE | 2018-01-21 14:14 | NUR ---
DISCHARGE INSTRUCTION AND PRESCRIPTION GIVEN VERBALIZED UNDERSTANDING . VITALS STABLE PATIENT AWARE OF [facility] WILL COME TO HIS HOME WITH IN 48 HOURS OR WILL CONTRACT HIM . D/C PATIENT HOME STABLE CONDITION UPON DISCHARGE.
[2018-01-21 14:18] VITALS: BP 158/91
--- NOTE | 2018-01-21 14:58 | NUR ---
PHYSICAL THERAPY CO-SIGN The Physical Therapy Progress Notes documented by Exhaust And Muffler Fitter have been reviewed. Reviewed/Co-Signed by: Janeth Vigil PT Documentation Done by: GREGORIA LOPEZ PTA Addendum: 01/21/18 at 1459 by Janeth Vigil PT Amended: Links added.
[2018-01-22] MEDS ORDERED: amLODIPine 5 MG TAB PO SCH (09:00)
== END 2018-01-21 14:21 | disposition home health service (06) | DRG 205 ==
LOC: MED 15:10 → MTU 17:49
PROVIDERS: ADMIT General Practice; ATTEND General Practice
DX: M94.0 Chondrocostal junction syndrome [Tietze] (principal); N17.0 Acute kidney failure with tubular necrosis; E44.0 Moderate protein-calorie malnutrition; D68.59 Other primary thrombophilia; E11.65 Type 2 diabetes mellitus with hyperglycemia; E11.42 Type 2 diabetes mellitus with diabetic polyneuropathy; I48.91 Unspecified atrial fibrillation; I10 Essential (primary) hypertension; K21.9 Gastro-esophageal reflux disease without esophagitis; N40.0 Benign prostatic hyperplasia without lower urinary tract symptoms; Z91.19 Patient's noncompliance with other medical treatment and regimen; Z68.36 Body mass index [BMI] 36.0-36.9, adult; I25.10 Atherosclerotic heart disease of native coronary artery without angina pectoris; Z95.5 Presence of coronary angioplasty implant and graft
CPT/HCPCS: 36415; 71045; 80048; 80053; 80305; 81001; 82140; 82150; 82948; 83036; 83605; 83690; 83735; 83880; 84100; 84439; 84443; 84484; 85025; 85610; 85730; 87040; 87081; 93005; 93925; 93970; 97110; 97116; 97140; 97530; C9113; J0360; J1815; J2270; J7030; Q0092